=== PATIENT | female | born 1980 | race African-American/Black ===

== ENCOUNTER → 2023-12-21 | Outpatient (CLI) | payer BC | END | disposition home or self-care (01) | LOC: MAMMO 00:54 | PROVIDERS: ATTEND Nurse Practitioner Women's Health | DX: Z12.31 Encounter for screening mammogram for malignant neoplasm of breast (principal) ==

== ENCOUNTER 2025-07-02 18:17 | Emergency (ER) | payer BC, OTHER ==
[~2025-07-02] VITALS: Ht 172.7 cm; Wt 72.6 kg
[2025-07-02] MEDS ORDERED: Ondansetron Hydrochloride 4 MG TAB PO ONE (18:35)
[2025-07-02] MEDS ORDERED: SODIUM CHLORIDE 0.9% 1,000 ML IV ONE (18:35)
[2025-07-02 18:46] LABS: BASO # 0.0 10*3/uL (0.0-0.1); BASO % 0.1 % (0.0-1.0); EOS # 0.0 10*3/uL (0.0-0.4); EOS % 0.1 % (1.0-4.0); MEAN CELL VOLUME 94.7 fl (81.0-99.0); MEAN CORPUSCULAR HGB 32.7 pg (27.0-31.0); MEAN PLATELET VOLUME 9.4 fl (9.6-12.3); MONO # 0.9 10*3/uL (0.1-1.0); MONO % 5.7 % (3.0-9.0); NEUT # 13.6 10*3/uL (2.3-7.9); NEUT % 85.6 % (47.0-73.0); NUCLEATED RED BLOOD CELL 0.0 % (0.0-0.0); NUCLEATED RED BLOOD CELL 0.0 10*3/uL (0.0-0.0); PLATELET COUNT AUTOMATED 276 10*3/uL (130-400); RED CELL DISTRI WIDTH 11.8 % (0-14.5)
[2025-07-02 18:55] LABS: BILIRUBIN Negative (Negative); BLOOD Negative (Negative); CLARITY Clear (Clear); COLOR Dark Yellow (Yellow); KETONE 3+ (Negative); LEUKO ESTERASE Trace (Negative); NITRITE Negative (Negative); SPECIFIC GRAVITY >= 1.030 (1.001-1.030); UROBILINOGEN 1.0 E.U./dl (0.0-1.0)
[2025-07-02 18:56] LABS: PH 8.5 (4.5-8.0)
[2025-07-02 19:08] LABS: BUN 8 mg/dl (9-23); SGPT/ALT 12 U/L (5-49)
[2025-07-02 19:17] LABS: BACTERIA 1+; EPITHELIAL CELLS 16-20; MUCOUS 1+; RBC 0-2 rbc/hpf (0-2)
[2025-07-02] MEDS ORDERED: HYDROCODONE-AC1 EAC1 PO (21:18)
[2025-07-02] MEDS ORDERED: NAPROSYN500 MG PO (21:18)
[2025-07-02] MEDS ORDERED: MACROBID100 M1 PO (21:19)
== END 2025-07-02 21:28 | disposition home or self-care (01) ==
LOC: ED 18:17
PROVIDERS: Nurse Practitioner Family
DX: N39.0 Urinary tract infection, site not specified (principal); D72.829 Elevated white blood cell count, unspecified; N83.8 Other noninflammatory disorders of ovary, fallopian tube and broad ligament